=== PATIENT | female | born 1955 | race Caucasian/White ===

== ENCOUNTER 2019-07-10 14:07 | Emergency (ER) | payer OTHER ==
[~2019-07-10] VITALS: Ht 165.1 cm; Wt 66.2 kg
[2019-07-10] MEDS ORDERED: FISH OIL 1,0001 EAC1 PO (14:32)
[2019-07-10] MEDS ORDERED: CIDAFLEX TABLE1 EACH PO (14:33)
[2019-07-10] MEDS ORDERED: VITAMIN C500 MG PO (14:33)
== END 2019-07-10 19:41 | disposition home or self-care (01) ==
LOC: ER 14:07
DX: S00.03XA Contusion of scalp, initial encounter (principal); S70.01XA Contusion of right hip, initial encounter; S40.022A Contusion of left upper arm, initial encounter; S90.32XA Contusion of left foot, initial encounter; W10.8XXA Fall (on) (from) other stairs and steps, initial encounter; Y93.89 Activity, other specified; Y92.018 Other place in single-family (private) house as the place of occurrence of the external cause; Y99.8 Other external cause status